=== PATIENT | female | born 1980 | race Caucasian/White ===

== ENCOUNTER 2018-09-19 17:28 | Emergency (ER) | payer OTHER ==
[2018-09-19 18:03] VITALS: BP 115/68; PULSE 73; TEMP 98.2; BMI 26.5
--- NOTE | 2018-09-19 19:36 | PDOC ---
History of Present Illness - General Chief Complaint: Rash Stated Complaint: RASH ON THE BODY Time Seen by Provider: 09/19/18 19:12 History Source: Parent(s) - History of Present Illness Initial Comments: 09/19/18 19:32 38 year old female c/o rash to chest itchy since [place] the park. no fever, nausea, vomiting, headache 09/19/18 19:35 Past History - Past Medical History Allergies/Adverse Reactions: Allergies Allergy/AdvReac Type Severity Reaction Status Date / Time shrimp Allergy Verified 09/19/18 19:25 Home Medications: Ambulatory Orders Diphenhydramine [Benadryl -] 50 mg PO QID PRN 09/19/18 Hydrocortisone 1% Ointment [Hytone 1% Ointment -] 1 applic TP BID #1 tube Loratadine [Claritin] 10 mg PO DAILY #30 tablet 09/19/18 - Suicide/Smoking/Psychosocial Hx Smoking History: Never smoked Have you smoked in the past 12 months: No Hx Alcohol Use: No Drug/Substance Use Hx: No Substance Use Type: None Review of Systems - Review of Systems Able to Perform ROS?: Yes Is the patient limited Syriac proficient: No Constitutional: No: Symptoms Reported, See HPI, Chills, Diaphoresis, Fever, Loss of Appetite, Malaise, Night Sweats, Weakness, Weight Stable, Unintentional Wgt. Loss, Unexplained wgt Loss, Other Integumentary: Yes: Pruritus, Rash *Physical Exam - Vital Signs Last Vital Signs Temp Pulse Resp BP Pulse Ox 98.2 F 73 18 115/68 98 09/19/18 18:01 09/19/18 18:01 09/19/18 18:01 09/19/18 18:01 09/19/18 18:01 - Physical Exam General Appearance: Yes: Appropriately Dressed Respiratory/Chest: positive: Normal Breath Sounds Integumentary: positive: Rash, Other (dermatitis to chest and arms) Neurologic: positive: Fully Oriented, Alert Progress Note - Progress Note Progress Note: contact dermatitis P: hydrocortisone *DC/Admit/Observation/Transfer Diagnosis at time of Disposition: Contact dermatitis Qualifiers: Contact dermatitis type: allergic Contact dermatitis trigger: unspecified trigger Qualified Code(s): L23.9 - Allergic contact dermatitis, unspecified cause - Discharge Dispostion Disposition: HOME Condition at time of disposition: Stable - Prescriptions Prescriptions: Hydrocortisone 1% Ointment [Hytone 1% Ointment -] 1 applic TP BID #1 tube Loratadine [Claritin] 10 mg PO DAILY #30 tablet - Referrals Referrals: Moni Basilio MD [Primary Care Provider] - - Patient Instructions Printed Discharge Instructions: Contact Dermatitis Additional Instructions: apply hydrocortisone to the affected area as prescribed. you may take Claritin daily follow up with your doctor as soon as possible. - Post Discharge Activity
== END 2018-09-19 19:41 | disposition home or self-care (01) ==
LOC: JERFT 17:28
DX: L23.9 Allergic contact dermatitis, unspecified cause (principal)
CPT/HCPCS: 99281-25

== ENCOUNTER 2020-02-11 02:23 | Emergency (ER) | payer OTHER ==
[2020-02-11 03:34] VITALS: BP 126/66; PULSE 73; TEMP 99.1; BMI 29.2
--- NOTE | 2020-02-11 03:56 | PDOC ---
History of Present Illness - General Chief Complaint: Ear Problem Stated Complaint: EAR PROBLEM Time Seen by Provider: 02/11/20 03:30 History Source: Patient Exam Limitations: No Limitations - History of Present Illness Initial Comments: 39 y/o female presenting to [facility] ER complaining of sensation of bug in her left ear. Started at approx. 02:00 this morning. No h/o similar. Past History - Medical History Allergies/Adverse Reactions: Allergies Allergy/AdvReac Type Severity Reaction Status Date / Time shrimp Allergy Verified 09/19/18 19:25 Home Medications: Ambulatory Orders Diphenhydramine [Benadryl -] 50 mg PO QID PRN 09/19/18 Hydrocortisone 1% Ointment [Hytone 1% Ointment -] 1 applic TP BID #1 tube 09/19/18 Loratadine [Claritin] 10 mg PO DAILY #30 tablet 09/19/18 - Reproductive History Is Patient Now?: No - Psycho-Social/Smoking History Smoking History: Never smoked Have you smoked in the past 12 months: No - Substance Abuse Hx (Audit-C & DAST Scrn) How often the patient has a drink containing alcohol: Never Score: In Men: 4 or > Positive; In Women: 3 or > Positive: 0 Screen Result (Pos requires Nsg. Audit-10AR): Negative In the last yr the pt used illegal drug/Rx for NonMed reason: No Score: Yes response is considered Positive: 0 Screen Result (Positive result requires Nsg. DAST-10): Negative Review of Systems - Review of Systems Constitutional: No: Fever HEENTM: No: Throat Pain Neurological: No: Headache *Physical Exam - Vital Signs Last Vital Signs Temp Pulse Resp BP Pulse Ox 99.1 F 73 18 126/66 99 02/11/20 03:23 02/11/20 03:23 02/11/20 03:23 02/11/20 03:23 02/11/20 03:23 - Physical Exam General Appearance: Yes: Appropriately Dressed. No: Apparent Distress HEENT: positive: Normal Voice, Other (Insect present in left external auditory canal.) Respiratory/Chest: negative: Respiratory Distress Cardiovascular: positive: Regular Rate Musculoskeletal: positive: Normal Inspection Extremity: positive: Normal Inspection Integumentary: positive: Dry, Warm Neurologic: positive: Fully Oriented, Alert, Normal Mood/Affect, Normal Response Medical Decision Making - Medical Decision Making Ordered Benadryl for topical anesthetic, but the bug jumped out of the pts ear prior to medical intervention. Repeat ear exam improved. No further foreign objects observed. Case discussed with ED Attending Dr. Mcgee. Myron Issa M.D., PGY3 Emergency Medicine Residency Discharge - Discharge Information Problems reviewed: Yes Clinical Impression/Diagnosis: Acute foreign body of ear canal Qualifiers: Encounter type: initial encounter Laterality: left Qualified Code(s): T16.2XXA - Foreign body in left ear, initial encounter Condition: Good Disposition: HOME - Admission No - Follow up/Referral Referrals: Moni Basilio MD [Primary Care Provider] - - Patient Discharge Instructions Patient Printed Discharge Instructions: DI for Removal of Foreign Body From Ear Additional Instructions: You were seen tonight for a bug in your left ear. It came out without medical intervention. Return to the ED for new or worsening symptoms. Print Language: [place] - Post Discharge Activity
--- NOTE | 2020-02-11 04:06 | PDOC ---
Attending Attestation - Resident Resident Name: Myron Issa - ED Attending Attestation I have performed the following: I have examined & evaluated the patient, The case was reviewed & discussed with the resident, I agree w/resident's findings & plan, Exceptions are as noted - HPI HPI: 02/11/20 04:04 39 yo F p/w foreign body sensation in L ear and pain. Denies changes in hearing. Denies drainage. Denies putting anything inside her ear. No other complaints. - Physicial Exam PE: 02/11/20 04:05 General: well appearing HEENT: +insect in L auditory canal, R TM wnl - Medical Decision Making 02/11/20 04:05 39 yo F with insect in L ear, plan was to remove insect manually however insect crawled out of ear prior to attempt. L TM unremarkable on exam after insect crawled out and patient without any complaints. Plan: -d/c with return precautions, recommend PMD f/u as needed This clinical encounter is taking place during a federal and state health care emergency attributable to the novel [place] Virus pandemic. The [place] of the Department of Health and Human Services has declared, pursuant to the Public Health Service Act 319F-3 (42 U.S.C. 247d-6d), that a covered persons activities related to medical countermeasures against COVID-19 will be immune from liability under Federal and State law. Discharge - Discharge Information Problems reviewed: Yes Clinical Impression/Diagnosis: Acute foreign body of ear canal Qualifiers: Encounter type: initial encounter Laterality: left Qualified Code(s): T16.2XXA - Foreign body in left ear, initial encounter Condition: Good Disposition: HOME - Follow up/Referral Referrals: Moni Basilio MD [Primary Care Provider] - - Patient Discharge Instructions Patient Printed Discharge Instructions: DI for Removal of Foreign Body From Ear Additional Instructions: You were seen tonight for a bug in your left ear. It came out without medical intervention. Return to the ED for new or worsening symptoms. Print Language: AMHARIC - Post Discharge Activity
== END 2020-02-11 04:40 | disposition home or self-care (01) ==
LOC: JER 02:23
DX: T16.2XXA Foreign body in left ear, initial encounter (principal)
CPT/HCPCS: 99282-25